=== PATIENT | male | born 1980 | race Caucasian/White ===

== ENCOUNTER 2017-06-26 11:16 | Emergency (ER) | payer OTHER ==
[2017-06-26] MEDS ORDERED: KETOROLAC 15 MG/1 ML SDV IVP ONE (11:43)
[2017-06-26] MEDS ORDERED: NS 1,000 ML IV ONE (11:43)
[2017-06-26] MEDS ORDERED: LIDOCAINE 1% 100 MG in NS 100 ML IV ONE ×2 (11:43→12:00)
[2017-06-26] MEDS ORDERED: ONDANSETRON 4 MG/2 ML VIAL IVP ONE ×2 (11:44→12:30)
--- NOTE | 2017-06-26 11:46 | EDPHY ---
H & P Stated Complaint: r flank pain/nausea with hx of kkidney stones Time Seen by Provider: 06/26/17 11:34 HPI/ROS: CHIEF COMPLAINT: Right flank pain HISTORY OF PRESENT ILLNESS: 36-year-old male with prior history of nephrolithiasis regarding lithotripsy in 2012 while he was living [place] arrives via private vehicle complaining of acute onset of sharp stabbing pain to the right flank , nausea, radiating to his right abdomen which took started approximately 1 hour prior to arrival. Positive pain to his right testicle, and he notes that for the past few days he has noticed mild pain in his right testicle as well. No trauma, no fall, no straddle injury, no dysuria hematuria increased frequency. No urethral discharge. No fever no chills. PRIMARY CARE PROVIDER: not established yet REVIEW OF SYSTEMS: A ten point review of systems was performed and is negative with the exception of the items mentioned in the HPI PAST MEDICAL & SURGICAL HISTORY: Nephrolithiasis requiring lithotripsy SOCIAL HISTORY: nonsmoker . Moved to [place] 4 months ago PHYSICAL EXAM (Prior to examination, patient consented to physical exam, hands were washed and my usual and customary physical exam procedures followed) 1) GENERAL: Well-developed, well-nourished, alert and oriented. Appears uncomfortable 2) HEAD: Normocephalic, atraumatic 3) HEENT: Pupils equal, round, reactive to light bilaterally. Sclera anicteric. 4) NECK: Full range of motion, no meningeal signs. 5) LUNGS: Clear auscultation bilaterally, no wheezes, no rhonchi, no retractions. 6) HEART: Regular rate and rhythm, no murmur, no heave, no gallop. 7) ABDOMEN: No guarding, no rebound, no focal tenderness, negative McBurney's, negative Dominguez's, negative Rovsing's, negative peritoneal sign, 8) MUSCULOSKELETAL: Moving all extremities, no focal areas of tenderness, no obvious trauma. No peripheral edema or discoloration. 9) BACK: No CVA tenderness, no midline vertebral tenderness, no fluctuance, no step-off, no obvious trauma, no visual or palpable abnormality. 10) SKIN: No rash, no petechiae. 11) : Normal male external genitalia, bilateral cremasteric reflex present, right testicle is mildly tender to palpation. . DIFFERENTIAL DIAGNOSIS: in no particular include but limited to nephrolithiasis , pyelonephritis, ureterolithiasis, testicular torsion - Personal History Current Tetanus/Diphtheria Vaccine: Unsure - Medical/Surgical History Hx Asthma: No Hx Chronic Respiratory Disease: No Hx Diabetes: No Hx Cardiac Disease: No Hx Renal Disease: No Hx Cirrhosis: No Hx Alcoholism: No Hx HIV/AIDS: No Hx Splenectomy or Spleen Trauma: No Other PMH: kidney stones - Social History Smoking Status: Never smoked Constitutional: Initial Vital Signs Temperature (C) 36.5 C 06/26/17 11:27 Heart Rate 48 L 06/26/17 11:27 Respiratory Rate 19 06/26/17 11:27 Blood Pressure 123/80 H 06/26/17 11:27 O2 Sat (%) 100 06/26/17 11:27 O2 Delivery Mode Room Air Allergies/Adverse Reactions: No Known Allergies Allergy (Unverified 06/26/17 11:27) Home Medications: Medication Instructions Recorded Hydrocodone/APAP 5/325 [[place] 1 tab PO Q6 PRN #15 tab 06/26/17 5/325 (RX)] Ondansetron Odt [Zofran Odt] 4 mg PO Q4PRN PRN #10 tab 06/26/17 Tamsulosin HCl [Flomax] 0.4 mg PO DAILY #7 cap 06/26/17 Medical Decision Making - Diagnostics Imaging Results: Imaging Impressions Testicular Ultrasound 06/26/17 11:46 Impression: 1. Normal-appearing testicles. 2. Mild varicocele suspected on the left. 3. Small bilateral hydrocele. Findings discussed with Jose Hurtado PAC at 12:26 hour, 06/26/2017. Abdomen/Pelvis CT 06/26/17 12:29 Impression: 1. Mild right-sided hydronephrosis secondary to a 4 x 4.5 mm right UVJ calculus at the level of the bladder wall. 2. Right-sided nephrolithiasis. Attention: This CT examination is specifically designed to evaluate patients who are clinically suspected of having acute obstructive uropathy. This examination does not use radiographic contrast, and as such, provides only a limited evaluation of the abdomen, pelvis and retroperitoneum. If there is further clinical suspicion for pathological conditions other than obstructive uropathy, a complete CT evaluation of the abdomen and pelvis utilizing intravenous, oral, and rectal contrast should be considered. Findings discussed with Jose PLUNKETT at 13:35 hour, 06/26/2017. Images reviewed myself ED Course/Re-evaluation: 11:40 a.m.: The patient was evaluated by myself, plan will be obtaining diagnostic studies including CT renal study as well as testicle ultrasound as he is complaining of independent right testicle pain which is mildly tender to palpation and preceded his symptoms. Discussed negative testicular or some of the patient. Doubt testicular torsion. Still awaiting CT abdomen pelvis. 4:15 p.m. The patient was re-evaluated with serial examinations over multiple hours. It took him some time to provide a urine sample which was ultimately provided showing no pyuria or bacteriuria. At most recent exam at 4:05 p.m. he is sitting upright, states that he is pain free, comfortable, feels comfortable being discharged home. We discussed my usual customary nephrolithiasis precautions instructions, recommended straining his urine, to return to ER if he develops new or worsening pain not controlled by oral analgesia, if he develops fevers or any other symptoms. He will be discharged with Flomax, [place] , Zofran. Given Urology follow-up information. He feels comfortable being discharged. Care of patient under supervision of secondary supervising physician Dr Garza . - Data Points Laboratory Results: Laboratory Results 06/26/17 11:40 06/26/17 11:40 06/26/17 06/26/17 06/26/17 14:55 11:40 11:40 WBC 5.38 10^3/uL 10^3/uL (3.80-9.50) RBC 4.38 10^6/uL L 10^6/uL (4.40-6.38) Hgb 14.5 g/dL g/dL (13.7-17.5) Hct 42.1 % % (40.0-51.0) MCV 96.1 fL fL (81.5-99.8) MCH 33.1 pg pg (27.9-34.1) MCHC 34.4 g/dL g/dL (32.4-36.7) RDW 12.6 % % (11.5-15.2) Plt Count 184 10^3/uL 10^3/uL (150-400) MPV 11.0 fL fL (8.7-11.7) Neut % (Auto) 40.0 % % (39.3-74.2) Lymph % (Auto) 46.1 % H % (15.0-45.0) [place] % (Auto) 10.2 % % (4.5-13.0) Eos % (Auto) 2.2 % % (0.6-7.6) Baso % (Auto) 0.9 % % (0.3-1.7) Nucleat RBC Rel Count 0.0 % % (0.0-0.2) Absolute Neuts (auto) 2.15 10^3/uL 10^3/uL (1.70-6.50) Absolute Lymphs (auto) 2.48 10^3/uL 10^3/uL (1.00-3.00) Absolute Monos (auto) 0.55 10^3/uL 10^3/uL (0.30-0.80) Absolute Eos (auto) 0.12 10^3/uL 10^3/uL (0.03-0.40) Absolute Basos (auto) 0.05 10^3/uL 10^3/uL (0.02-0.10) Absolute Nucleated RBC 0.00 10^3/uL 10^3/uL (0-0.01) Immature Gran % 0.6 % % (0.0-1.1) Immature Gran # 0.03 10^3/uL 10^3/uL (0.00-0.10) Sodium 140 mEq/L mEq/L (134-144) Potassium 3.9 mEq/L mEq/L (3.5-5.2) Chloride 103 mEq/L mEq/L (97-110) Carbon Dioxide 23 mEq/l mEq/l (22-31) Anion Gap 14 mEq/L mEq/L (8-16) BUN 16 mg/dL mg/dL (7-23) Creatinine 0.9 mg/dL mg/dL (0.7-1.3) Estimated GFR > 60 Glucose 104 mg/dL H mg/dL (70-100) Calcium 9.7 mg/dL mg/dL (8.5-10.4) Total Bilirubin 0.7 mg/dL mg/dL (0.1-1.4) Conjugated Bilirubin 0.3 mg/dL mg/dL (0.0-0.5) Unconjugated Bilirubin 0.4 mg/dL mg/dL (0.0-1.1) AST 30 IU/L IU/L (17-59) ALT 39 IU/L IU/L (21-72) Alkaline Phosphatase 75 IU/L IU/L (38-126) Total Protein 7.4 g/dL g/dL (6.3-8.2) Albumin 4.7 g/dL g/dL (3.5-5.0) Lipase 152 IU/L IU/L (23-300) Urine Color YELLOW Urine Appearance CLEAR Urine pH 5.0 (5.0-7.5) Ur Specific [place] 1.015 (1.002-1.030) Urine Protein NEGATIVE (NEGATIVE) Urine Ketones 1+ H (NEGATIVE) Urine Blood 2+ H (NEGATIVE) Urine Nitrate NEGATIVE (NEGATIVE) Urine Bilirubin NEGATIVE (NEGATIVE) Urine Urobilinogen NEGATIVE EU EU (0.2-1.0) Ur Leukocyte Esterase NEGATIVE (NEGATIVE) Urine RBC 25-50 /hpf H /hpf (0-3) Urine WBC 1-3 /hpf /hpf (0-3) Ur Epithelial Cells TRACE /lpf /lpf (NONE-1+) Urine Mucus 1+ /lpf /lpf (NONE-1+) Urine Glucose NEGATIVE (NEGATIVE) Medications Given: Discontinued Medications Fentanyl (Sublimaze) 100 mcg IVP EDNOW ONE Stop: 06/26/17 13:59 Last Admin: 06/26/17 14:16 Dose: 100 mcg Hydromorphone HCl (Dilaudid) 1 mg IVP EDNOW ONE Stop: 06/26/17 12:30 Last Admin: 06/26/17 12:35 Dose: 1 mg Sodium Chloride (Ns) 1,000 mls @ 3,000 mls/hr IV EDNOW ONE Stop: 06/26/17 12:02 Last Admin: 06/26/17 11:51 Dose: 1,000 mls Lidocaine HCl 100 mg/ Sodium (Chloride) 110 mls @ 600 mls/hr IV EDNOW ONE Stop: 06/26/17 12:10 Last Admin: 06/26/17 12:37 Dose: Not Given Ketorolac Tromethamine (Toradol) 15 mg IVP EDNOW ONE Stop: 06/26/17 11:44 Last Admin: 06/26/17 11:52 Dose: 15 mg Ondansetron HCl (Zofran) 4 mg IVP EDNOW ONE Stop: 06/26/17 11:45 Last Admin: 06/26/17 11:51 Dose: 4 mg Ondansetron HCl (Zofran) 4 mg IVP EDNOW ONE Stop: 06/26/17 12:31 Last Admin: 06/26/17 12:34 Dose: 4 mg Tamsulosin HCl (Flomax) 0.4 mg PO EDNOW ONE Stop: 06/26/17 13:58 Last Admin: 06/26/17 14:16 Dose: 0.4 mg Departure - Departure Disposition: Home, Routine, Self-Care Clinical Impression: Nephrolithiasis Condition: Good Instructions: Kidney Stones (ED) Additional Instructions: Return to the emergency department if you develop fevers, worsening pain, pain not controlled by pain medicine or any other symptoms that concern you Referrals: Juan Conner MD [Medical Doctor] - 2-3 days, call for appt. (Dr Conner is a urologist) Prescriptions: Hydrocodone/APAP 5/325 [[place] 5/325 (RX)] 1 tab PO Q6 PRN #15 tab PRN Reason: Pain, Severe Ondansetron Odt [Zofran Odt] 4 mg PO Q4PRN PRN #10 tab PRN Reason: Nausea Tamsulosin HCl [Flomax] 0.4 mg PO DAILY #7 cap
[2017-06-26 11:52] LABS: % IMMATURE GRANULYOCYTES 0.6 % (0.0-1.1); ABSOLUTE IMMATURE GRANULOCYTES 0.03 10^3/uL (0.00-0.10); ADD DIFF? NO; ADD MORPH? NO; ADD SCAN? NO; ATYPICAL LYMPHOCYTE FLAG 10 (0-99); FRAGMENT RBC FLAG 0 (0-99); HEMATOCRIT 42.1 % (40.0-51.0); HEMOGLOBIN 14.5 g/dL (13.7-17.5); LEFT SHIFT FLG 0 (0-99); LIPEMIA HEMOLYSIS FLAG 90 (0-99); MEAN CELL HEMOGLOBIN 33.1 pg (27.9-34.1); MEAN CELL HEMOGLOBIN CONCENTR. 34.4 g/dL (32.4-36.7); MEAN CELL VOLUME 96.1 fL (81.5-99.8); PLATELET CLUMPS FLAG 10 (0-99); PLATELET COUNT 184 10^3/uL (150-400); RED BLOOD CELL COUNT 4.38 10^6/uL (4.40-6.38); RED CELL DISTRIBUTION WIDTH 12.6 % (11.5-15.2)
[2017-06-26 12:05] LABS: ALANINE AMINOTRANSFERASE 39 IU/L (21-72); ALBUMIN 4.7 g/dL (3.5-5.0); ALKALINE PHOSPHATASE 75 IU/L (38-126); ANION GAP 14 mEq/L (8-16); ASPARTATE AMINOTRANSFERASE 30 IU/L (17-59); BILIRUBIN,TOTAL 0.7 mg/dL (0.1-1.4); BILIRUBIN-CONJUGATED 0.3 mg/dL (0.0-0.5); BILIRUBIN-UNCONJUGATED 0.4 mg/dL (0.0-1.1); CALCIUM 9.7 mg/dL (8.5-10.4); CARBON DIOXIDE 23 mEq/l (22-31); CHLORIDE 103 mEq/L (97-110); CREATININE 0.9 mg/dL (0.7-1.3); GLOMERULAR FILTRATION RATE > 60; GLUCOSE 104 mg/dL (70-100); POTASSIUM 3.9 mEq/L (3.5-5.2); SODIUM 140 mEq/L (134-144); TOTAL PROTEIN 7.4 g/dL (6.3-8.2)
[2017-06-26] MEDS ORDERED: HYDROmorphONE/DILAUDID 1 MG/ML INJ IVP ONE (12:29)
[2017-06-26] MEDS ORDERED: TAMSULOSIN HCL 0.4 MG CAP PO ONE (13:57)
[2017-06-26] MEDS ORDERED: fentaNYL 100 MCG/2 ML INJ IVP ONE (13:58)
[2017-06-26 15:33] LABS: COLOR YELLOW; LEUKOCYTE ESTERASE,URINE NEGATIVE (NEGATIVE); NITRITE,URINE NEGATIVE (NEGATIVE)
[2017-06-26 15:34] LABS: MUCUS 1+ /lpf (NONE-1+); RBC,URINE 25-50 /hpf (0-3)
[2017-06-26 16:32] VITALS: BP 118/72; PULSE 81; RESP 16; TEMP 98.6; O2SAT 98
== END 2017-06-26 16:30 | disposition home or self-care (01) ==
DX: N20.0 Calculus of kidney (principal)
CPT/HCPCS: 96374; J1170; J1885; J2405

== ENCOUNTER → 2017-10-26 | Outpatient (CLI) | payer OTHER | LOC: FIMAGING 12:17 | PROVIDERS: ATTEND Specialist | DX: N20.0 Calculus of kidney (principal) ==

== ENCOUNTER → 2017-12-25 | Outpatient (CLI) | payer OTHER | LOC: FIMAGING 09:45 | PROVIDERS: ATTEND Specialist | DX: N20.0 Calculus of kidney (principal) ==